=== PATIENT | male | born 2000 | race Caucasian/White ===

== ENCOUNTER 2021-01-01 19:27 | Emergency (ER) | payer OTHER, SELFPAY ==
[2021-01-01 19:28] VITALS: BP 148/82; PULSE 104; RESP 18; TEMP 35.4; O2SAT 96; BMI 25.7
--- NOTE | 2021-01-01 20:04 | RAD_ITS ---
STUDY: X-RAY - LEFT WRIST REASON FOR EXAM: Male, 20 years old. The region of the left wrist. Patient fell while riding skateboard yesterday. Unable to move wrist. TECHNIQUE: 3 view(s) of the wrist were obtained. COMPARISON: None. FINDINGS: Normal visualized distal radius and ulna. Normal radiocarpal articulation. Normal distal radioulnar articulation. There is lucency in the region of the scaphoid waist suggesting nondisplaced scaphoid fracture. The remainder of the carpals appear intact. Normal carpal articulations. Normal carpometacarpal articulation of the thumb. Normal second through fifth carpometacarpal articulations. Normal visualized metacarpal bones. Diffuse soft tissue swelling. RAD/Wrist 2 Views IMPRESSION: Question nondisplaced fracture of the scaphoid with associated soft tissue swelling. Electronically Signed: Marcus Gonsalves DO at 20:16 EDT Tel [phone], Service support ,
--- NOTE | 2021-01-01 20:26 | ED.VISSUMM ---
- ER Visit Summary Date of Service: 01/01/21 Chief Complaint: [Injury to left wrist] History of Present Illness: The patient is a 20 M [presents to the emergency department with an injury to the left wrist that occurred yesterday while boarding. Patient states that he fell off a skateboard and try to catch himself and abraded his left palm and injured his left wrist. Patient is right-hand dominant. Other injuries. Patient has history of asthma.] Physical Examination: [HEENT-PERRLA, EOMI. Cranial nerves II through XII grossly intact. TMs clear. Mucous membranes moist. No adenopathy. Cardiovascular-regular rate and rhythm without murmur or ectopy Lungs-clear to auscultation, chest wall stable without crepitus or subcu emphysema Abdomen-normoactive bowel sounds, soft, nontender, no rebound or rigidity, no peritoneal signs. Extremities-intact ?4, normal range of motion, normal pulses, atraumatic] Test Results: [X-rays of the left wrist obtained 3 views showed on my interpretation a fracture of the scaphoid that appears nondisplaced. Radiology read it as questionable fracture of the scaphoid. Emergency Department Course and Treatment: [Case was discussed with orthopedics on-call Dr. Konstantin Torres. He was comfortable with a thumb spica splint and follow-up with our office.] Treatment Plan: [We will be given a prescription for [place] for pain. He will be given a thumb spica splint. Patient will be given a sling.] Disposition: [Discharged home in stable condition] Impression: [Left wrist scaphoid fracture] This note was generated with [employer] dictation software. It may contain incorrect words, spelling, and punctuation that were not noted in review of the chart prior to signing
--- NOTE | 2021-01-01 20:30 | ED.DEP ---
ED Disposition - Plan for ED Patient: Instructions: ED Fracture, Wrist, General Prescriptions: Hydrocodone Bitart/Apap 5-325 [[place] 5MG-325MG] 1 tablet PO Q4H PRN PRN 2 Days #10 tab PRN Reason: Pain Prescription Printed Referrals: Konstantin Torres MD [STAFF PHYSICIAN] - 3-5 Days
[2021-01-01 20:51] VITALS: BP 140/82; PULSE 100; RESP 15; O2SAT 98
== END 2021-01-01 20:51 | disposition home or self-care (01) ==
LOC: ED 20:40
PROVIDERS: Emergency Provider Emergency Medicine
DX: S62.002A Unspecified fracture of navicular [scaphoid] bone of left wrist, initial encounter for closed fracture (principal); V00.131A Fall from skateboard, initial encounter; Y93.51 Activity, roller skating (inline) and skateboarding; Y92.9 Unspecified place or not applicable; Y99.9 Unspecified external cause status; J45.909 Unspecified asthma, uncomplicated; Z72.0 Tobacco use
CPT/HCPCS: 73100; 99283

== ENCOUNTER 2024-02-23 08:26 | Emergency (ER) | payer MEDICAID, SELFPAY ==
[2024-02-23 08:27] VITALS: BP 136/74; PULSE 106; RESP 20; TEMP 36.8; O2SAT 94; BMI 26.6
[2024-02-23 08:30] VITALS: BP 136/74; PULSE 91; RESP 20; TEMP 36.8; O2SAT 95
--- NOTE | 2024-02-23 08:30 | EKG12_ITS ---
Test Reason : SOB Blood Pressure : / mmHG Vent. Rate : 095 BPM Atrial Rate : 095 BPM P-R Int : 140 ms QRS Dur : 076 ms QT Int : 328 ms P-R-T Axes : 078 081 060 degrees QTc Int : 412 ms Normal sinus rhythm Right atrial enlargement Borderline ECG Confirmed by Dominic López ([id number]), advertising editor DANIEL FLOWER ([id number]) on 02/28/2024 9:34:48 AM Referred By: UG/TA Confirmed By:Dominic López
--- NOTE | 2024-02-23 08:32 | EDS_ITS ---
HPI History of Present Illness Chief Complaint: Shortness of Breath [facility] Medical History (Updated 02/23/24 @ 08:28 by Alexis Dubois) Asthma Home Medications ?Medication ?Instructions ?Recorded ?Last Taken ?Type NK 02/23/24 Unknown History Allergy/AdvReac Type Severity Reaction Status Date / Time pollen extracts Allergy Itching Verified 02/23/24 08:32 Social History Smoking Status: Former smoker EXAM Physical Exam Const Vital Signs: 02/23/24 08:27 02/23/24 08:30 02/23/24 08:59 Temperature 98.2 F 98.2 F Temperature Source Oral Oral Pulse Rate 106 H 91 96 Respiratory Rate 20 H 20 H 20 H Respiratory Pattern Tachypnea Blood Pressure 136/74 H 136/74 H Blood Pressure Mean 94 94 Pulse Ox 94 95 Oxygen Delivery Method Room Air Room Air MDM [facility] MDM Narrative Medical decision making narrative: HISTORY OF PRESENT ILLNESS: 23-year-old male presents shortness of breath since yesterday. He states he had 1 day of shortness of breath. Denies smoking vaping or other drug use. Denies recent illness such as cough or fever. Notes history of asthma does not have an inhaler. Notes no lower extremity edema. The patient denies recent surgery in the last 4 weeks or immobilization in the last 3 days, denies previous diagnosis of DVT or PE, hemoptysis, unilateral leg swelling or malignancy with treatment the last 6 months or palliative. No estrogen use noted. Denies bleeding diathesis. REVIEW OF SYSTEMS: Pertinent positives: Shortness of breath Pertinent negatives: Chest pain, lower extremity edema PHYSICAL EXAM: Nursing triage notes reviewed, Vital signs reviewed Constitutional: please see mdm HENT: MMM Eyes: Pupils equal round and reactive to light, Extraocular muscles intact Neck: No stridor, no JVD, full neck ROM Lungs: Bilateral wheezing noted, no increased work of breathing, no conversational dyspnea, no accessory muscle use, no nasal flaring. No respiratory distress noted Heart: Regular rate and rhythm, No murmurs, No rubs and No gallops, 2+ distal pulses (radial, femoral, posterior tibial) in all extremities Abdomen: Soft, there is no tenderness, rigidity, rebound or guarding, no obvious peritoneal signs, no palpable pulsatile abdominal masses, no auscultated abdominal bruit : No CVAT Extremities: No edema Neuro: No focal neurological deficits, cranial nerves II through XII intact, 5/5 strength in all extremities. Intact sensation to light touch in all extremities, 2+ reflexes bilateral patella tendons. Normal gait. No ataxia. Skin: No rash or lesions noted MEDICAL DECISION MAKING: Chief Complaint: Shortness of breath External records reviewed: No recent advanced imaging of the chest noted Factors affecting care: No prior medical history endorsed Social determinants of health: none History obtained from others: none Consults: none MDM Narrative: Patient was initially hemodynamically stable, afebrile and nontoxic-appearing. Lungs with expiratory wheezing. No obvious consolidation. No lower EXTR edema or stigmata of VTE noted I considered the following differential diagnosis: Asthma exacerbation, arrhythmia, pneumonia, heart failure ALL IMAGES (IF OBTAINED) HAVE BEEN PERSONALLY REVIEWED AND INTERPRETED BY MYSELF. EKG with normal sinus rhythm, normal axis, normal intervals, no STEMI There is medication for an x-ray at this time as patient was nontoxic-appearing had no fever. Low suspicion for pneumonia. There is no stigmata of heart failure noted exam Patient noted complete resolution of symptoms after breathing treatment. Appropriate discharge home. The patient and/or family, caregivers express understanding. The patient and/or family, caregivers agrees with the plan. Shared decision making: I will have a discussion with the patient and or visitors regarding risk/benefits of further testing or admission. They will be made aware of of the risk/benefits inherent in this decision they will be given the opportunity to voice understanding. Total critical care time today provided was at least 0 minutes. This excludes separately billable procedures. Critical care time (if documented) is secondary to the patient having high probability of clinically significant/life threatening deterioration in the patient's condition which required my urgent intervention. Impression: 1. Acute asthma exacerbation 2. Dyspnea 3. Medication non-compliance Dispo: dc home This note was generated with [employer] dictation software. It may contain incorrect words, spelling, and punctuation that were not noted in review of the chart prior to signing. Discharge Plan Triage Chief Complaint: Shortness of Breath ED Provider: Bandar Huston Dx/Rx/DC Orders Instructions: ED Asthma, Acute (Adult) Prescriptions: No Action NK Stand Alone Forms: ED Work / School Excuse Primary Care Provider: Care Physician,No Primary Referrals: Shaun Sumner MD [Med Staff - Active Staff] - Care Physician,No Primary [Primary Care Provider] - Activity Restrictions/Additional Instructions: Thank you for trusting us with your care today! You have been diagnosed with asthma exacerbation. Please take inhaler as needed. Please take Tylenol (2 pills, 650 mg), ibuprofen (2 pills, 400 mg) every 6 hours as needed for pain and fever control. Please return to the emergency department if your symptoms change or worsen. Please follow with your primary care physician for further outpatient evaluation and management. Print Language: Guamanian Disposition Disposition: Home, Self Care
[2024-02-23] MEDS: Ipratropium/Albuterol Sulfate 3 ML AMPUL.NEB INHALATION (08:58)
[2024-02-23 08:59] VITALS: PULSE 96; RESP 20
[2024-02-23] MEDS: predniSONE 20 MG Tablet 40 MG PO (09:43)
[2024-02-23] MEDS: Albuterol Sulfate 8 gm Inhaler (60 puffs) 2 PUFF INHALATION (09:43)
[2024-02-23 09:48] VITALS: BP 134/77; PULSE 96; RESP 18; TEMP 36.7; O2SAT 98
== END 2024-02-23 09:49 | disposition home or self-care (01) ==
PROVIDERS: Emergency Provider Emergency Medicine; Visit Provider Emergency Medicine
DX: J45.901 Unspecified asthma with (acute) exacerbation (principal); Z87.891 Personal history of nicotine dependence; Z91.148 Patient's other noncompliance with medication regimen for other reason
CPT/HCPCS: 93005; 94640; 99282; A4216

== ENCOUNTER 2024-03-22 21:21 | Emergency (ER) | payer MEDICAID, SELFPAY ==
[2024-03-22 21:21] VITALS: BP 114/60; PULSE 114; RESP 26; TEMP 36.4; O2SAT 91
[2024-03-22 21:58] VITALS: O2SAT 95
[2024-03-22] MEDS: Ipratropium/Albuterol Sulfate 3 ML AMPUL.NEB INHALATION ×2 (22:07→22:09)
[2024-03-22 22:08] VITALS: PULSE 108; RESP 12
[2024-03-22 22:21] VITALS: BP 121/61; PULSE 126; RESP 14; O2SAT 95
--- NOTE | 2024-03-22 22:45 | RAD_ITS ---
EXAM: XR CHEST, 2 VIEWS CLINICAL INDICATION: cough TECHNIQUE: Frontal and lateral views of the chest. COMPARISON: No relevant prior studies available. FINDINGS: LUNGS AND PLEURAL SPACES: Unremarkable. No consolidation or edema. No pneumothorax. No effusion. HEART: Unremarkable. Cardiac silhouette not enlarged. MEDIASTINUM: Central airways and mediastinal contour are unremarkable. BONES/JOINTS: Unremarkable. No acute fracture. SOFT TISSUES: Unremarkable. RAD/Chest PA and Lateral IMPRESSION: No radiographic evidence of acute cardiopulmonary disease. Electronically Signed: Rufus Michelle MD at 23:24 EDT ,
[2024-03-22] MEDS: MethylPREDNISolone 125 MG/2 ML Vial IV (22:53)
[2024-03-22 23:00] VITALS: BP 121/78; PULSE 105; RESP 18; O2SAT 97
[2024-03-22] MEDS: LORazepam 2 MG/ML Syringe 1 MG IV (23:16)
--- NOTE | 2024-03-22 23:56 | EDS_ITS ---
HPI History of Present Illness Chief Complaint: Asthma Informant: patient Narrative Narrative: Patient is a 23-year-old male with past medical history of asthma. He states that his asthma is typically well-controlled and that he uses his inhaler once or twice a week. He denies any previous hospitalization or intubation secondary to his asthma. He states that for the past few days he has had mild congestion and drainage but denies any known sick contacts. He states that throughout the day today he was having difficulty breathing and is out of his inhaler and his symptoms or not improving presents for evaluation. [facility] Medical History (Updated 03/23/24 @ 00:[address] Costa Maxwell, DO) Asthma Home Medications ?Medication ?Instructions ?Recorded ?Last Taken ?Type albuterol sulfate 90 mcg/actuation 2 inh inhalation Q4H PRN shortness 03/22/24 Unknown History aerosol inhaler of breath or wheezing albuterol sulfate 90 mcg/actuation 1 - 2 puff inhalation Q4H PRN PRN 03/22/24 Unknown Rx aerosol inhaler (Ventolin HFA) Wheezing/SOB #1 device ipratropium 0.5 mg-albuterol 3 mg 3 ml inhalation Q6H PRN shortness 03/22/24 Unknown Rx (2.5 mg base)/3 mL nebulization of breath/wheeze #180 mL soln prednisone 20 mg tablet 40 mg (2 x 20 mg) PO DAILY 7 days 03/22/24 Unknown Rx #14 tabs Allergy/AdvReac Type Severity Reaction Status Date / Time pollen extracts Allergy Itching Verified 03/22/24 21:21 Social History Smoking Status: Former smoker [facility] ED Constitutional Constitutional ED: Denies chills or fever(s) ENT ENT ED: Reports rhinorrhea and sore throat Cardiovascular Cardiovascular: Denies chest pain Respiratory/Chest Respiratory/Chest: Reports cough and dyspnea Gastrointestinal Gastrointestinal: Denies abdominal pain, diarrhea, nausea or vomiting Genitourinary Genitourinary ED: Denies dysuria Musculoskeletal Musculoskeletal: Denies myalgias Integumentary Denies rash Neurologic Neurologic: Denies headache(s) Hematologic/Lymphatic Hematologic/Lymphatic: Denies easy bleeding or easy bruising Allergic/Immunologic Allergic/Immunologic ED: Denies mouth swelling or tongue swelling EXAM Physical Exam Const Vital Signs: 03/22/24 21:21 03/22/24 21:58 03/22/24 22:08 Temperature 97.6 F L Temperature Source Temporal Pulse Rate 114 H 108 H Respiratory Rate 26 H 12 Respiratory Effort Short of Breath Labored Accessory Muscle Use Respiratory Depth Shallow Respiratory Pattern Tachypnea Normal Blood Pressure 114/60 Blood Pressure Mean 78 Pulse Ox 91 Oxygen Delivery Method Room Air Room Air 03/22/24 22:21 03/22/24 23:00 Temperature Temperature Source Pulse Rate 126 H 105 H Respiratory Rate 14 18 Respiratory Effort Respiratory Depth Respiratory Pattern Blood Pressure 121/61 H 121/78 H Blood Pressure Mean 81 92 Pulse Ox 95 97 Oxygen Delivery Method Room Air Room Air Positive well nourished and well developed General Appearance ED: well developed; Negative for pallor HEENT HEENT Narrative: [place]blest[place] is noted in the posterior pharynx consistent with sinus drainage however there are no secondary changes to suggest infection No tongue or lip swelling no oral lesions no airway edema or compromise Eyes PERRL and EOMs intact bilaterally General Eye ED: Negative for pale conjunctiva or scleral icterus Neck supple Neck Narrative: No crepitance palpated Chest Wall Chest Narrative: There is reproducible anterior chest wall pain on palpation mainly in the intercostal spaces. No bony deformity or crepitance noted Resp Resp Narrative: Patient is in mild respiratory distress with tachypnea and accessory muscle use Breath sounds are diminished throughout with diffuse expiratory wheeze. No nasal flaring or retractions noted Cardio regular rhythm Rate: tachycardic GI normal to inspection, nondistended, normoactive bowel sounds, non-tender, non- distended and no masses Auscultation: normoactive bowel sounds Palpation: soft Extremity normal to inspection Extremity Narrative: No asymmetric edema no pitting edema negative Homans' sign bilaterally Neuro oriented x3, CN's II-XII intact bilaterally and no sensory deficits noted Sensorium / Orientation: alert Motor Exam: strength 5/5 throughout Psych mental status grossly normal Skin no rashes or lesions noted, no wounds and skin turgor normal General Skin Exam: Negative for jaundice or pallor MDM MDM MDM Narrative Medical decision making narrative: Patient presented to the ER in mild respiratory distress with tachypnea and accessory muscle use and pulse ox in the low 90s on room air. History is consistent with asthma exacerbation which is mostly brought about by the fact he is out of his inhaler and the weather was warmer today. However as he does have nasal congestion and drainage there is concern for potential pneumonia or pneumothorax or pneumomediastinum. Patient was given IV steroids as well as albuterol and DuoNeb breathing treatments. A chest x-ray was obtained which revealed no acute lung pathology. After patient was medicated he had improvement of his breath sounds and as well as work of breathing. Therefore at this time as he is not in respiratory distress he is not requiring supplemental oxygen and his x-ray does not suggest pneumomediastinum or pneumothorax or pneumonia there is no need for further workup or admission and he is safe for discharge History & Record Review Discussion w/independent historian: Patient Radiography Diagnostic Testing: Clinical Impression(s) from Imaging Studies Chest X-Ray 03/22/24 22:45 IMPRESSION: No radiographic evidence of acute cardiopulmonary disease. Electronically Signed: Rufus Michelle MD at 23:24 EDT , 2 view chest x-ray as interpreted by the emergency medicine physician reveals no acute infiltrate pneumothorax or pleural effusion Discharge Plan Triage Chief Complaint: Asthma ED Provider: Costa Maxwell Dx/Rx/DC Orders Clinical Impression: Asthma exacerbation, Intercostal muscle strain Instructions: ED Asthma, Acute (Adult) Prescriptions: New albuterol sulfate [Ventolin HFA] 90 mcg/actuation HFA aerosol inhaler 1 - 2 puff inhalation Q4H PRN PRN (Reason: Wheezing/SOB) Qty: 1 2RF ipratropium-albuterol 0.5 mg-3 mg(2.5 mg base)/3 mL solution for nebulization 3 ml inhalation Q6H PRN (Reason: shortness of breath/wheeze) Qty: 180 1RF prednisone 20 mg tablet 40 mg PO DAILY 7 Days Qty: 14 0RF No Action albuterol sulfate 90 mcg/actuation HFA aerosol inhaler 2 inh inhalation Q4H PRN (Reason: shortness of breath or wheezing) Primary Care Provider: Care Physician,No Primary Referrals: Shaun Sumner MD [Med Staff - Active Staff] - Care Physician,No Primary [Primary Care Provider] - Activity Restrictions/Additional Instructions: Please return to the ER should you have any further concerns or symptoms worsen despite taking the prescribed medication Print Language: American Disposition Disposition: Home, Self Care Discharge Date/Time: 03/23/24 00:02
[2024-03-22 23:58] VITALS: BP 113/63; PULSE 109; RESP 16; TEMP 36.2; O2SAT 95
[2024-03-23] MEDS: Albuterol Sulfate 8 gm Inhaler (60 puffs) 2 PUFF INHALATION (00:01)
== END 2024-03-23 00:02 | disposition home or self-care (01) ==
PROVIDERS: Emergency Provider Emergency Medicine; Visit Provider Emergency Medicine
DX: J45.901 Unspecified asthma with (acute) exacerbation (principal); R06.03 Acute respiratory distress; S29.011A Strain of muscle and tendon of front wall of thorax, initial encounter; X58.XXXA Exposure to other specified factors, initial encounter; R09.81 Nasal congestion; Z87.891 Personal history of nicotine dependence
CPT/HCPCS: 71046; 94640; 96374; 96375; 99282; A4216